=== PATIENT | male | born 1960 | race Caucasian/White ===

== ENCOUNTER 2021-11-14 09:49 | Emergency (ER) | payer OTHER ==
[2021-11-14 10:03] VITALS: RESP 18; TEMP 98.4
[2021-11-14] MEDS ORDERED: PROPARACAINE 0.5% OPHTH DROPS 15 ML BTL LEFT EYE STA (10:04)
[2021-11-14] MEDS ORDERED: FLUORESCEIN STRIPS 1 MG STRIP LEFT EYE ONE (10:04)
[2021-11-14] MEDS ORDERED: ERYTHROMYCIN 5 MG/GM OPHTH OINT 1 GM TUBE LEFT EYE STA (10:43)
[2021-11-14] MEDS ORDERED: DIPH,PERTUS(ACELL)TETVAC-LF 0.5 ML VIAL IM ONE (10:43)
--- NOTE | 2021-11-14 10:45 | ED ---
General Adult HPI - General Source: patient, RN notes reviewed Mode of arrival: ambulatory Limitations: no limitations <Phani Moreno - Last Filed: 11/14/21 10:47> <Hillary Diehl - Last Filed: 11/15/21 00:12> - General Chief complaint: Eye Problems Stated complaint: IHS-Lt Eye Injury Time Seen by Provider: 11/14/21 10:04 - History of Present Illness Initial comments: 61-year-old male presents to the emergency room for a chief complaint of left eye pain. Patient states he was changing the menus at [employer] and the lites metal carley fell and hit him on the eye. Patient states it feels like there is something in his eye. Denies pain around his eye. Denies any difficulty moving his eye. States that when his eye darts watering he has some blurry vision but otherwise his vision is fine.Patient has no other complaints at this time including shortness of breath, chest pain, abdominal pain, nausea or vomiting, headache, or visual changes. (Phani Moreno) - Related Data Home Medications Medication Instructions Recorded Confirmed Enalapril Maleate [Vasotec] 10 mg PO BID 01/30/16 05/31/16 Ibuprofen [Motrin] 2 - 3 tab PO Q6HR PRN 05/29/16 05/31/16 Previous Rx's Medication Instructions Recorded Hydrocodone/Acetaminophen [[place]lin 1 - 2 each PO Q4HR PRN #40 tab 05/31/16 5-325] Erythromycin Ophth Oint [Romycin 1 applic LEFT EYE QID 7 Days #3.5 11/14/21 Ophth Oint] gm Allergies Allergy/AdvReac Type Severity Reaction Status Date / Time No Known Allergies Allergy Verified 11/14/21 10:01 Review of Systems ROS Other: All systems not noted in ROS Statement are negative. <Phani Moreno - Last Filed: 11/14/21 10:47> ROS Other: All systems not noted in ROS Statement are negative. <Hillary Diehl - Last Filed: 11/15/21 00:12> ROS Statement: Those systems with pertinent positive or pertinent negative responses have been documented in the HPI. Past Medical History Past Medical History: Hypertension, Skin Disorder Additional Past Medical History / Comment(s): PSORIASIS. ALECIA ING HERNIA. History of Any Multi-Drug Resistant Organisms: None Reported Additional Past Surgical History / Comment(s): COLONOSCOPY. Past Anesthesia/Blood Transfusion Reactions: No Reported Reaction Past Psychological History: No Psychological Hx Reported Past Alcohol Use History: Occasional Past Drug Use History: None Reported - Past Family History Mother Family Medical History: No Reported History <Phani Moreno - Last Filed: 11/14/21 10:47> General Exam Limitations: no limitations General appearance: alert, in no apparent distress Head exam: Present: atraumatic, normocephalic Eye exam: Present: normal appearance, PERRL, EOMI. Absent: scleral icterus, conjunctival injection ENT exam: Present: normal exam, mucous membranes moist Neck exam: Present: normal inspection, full ROM. Absent: tenderness Respiratory exam: Present: normal lung sounds bilaterally. Absent: respiratory distress, wheezes Cardiovascular Exam: Present: regular rate, normal rhythm, normal heart sounds <Phani Moreno - Last Filed: 11/14/21 10:47> Course Vital Signs 11/14/21 11/14/21 10:01 11:04 Temperature 98.4 F 98.4 F Pulse Rate 82 80 Respiratory 18 18 Rate Blood Pressure 162/88 158/86 O2 Sat by Pulse 99 99 Oximetry Medical Decision Making <Phani Moreno - Last Filed: 11/14/21 10:47> <Hillary Diehl - Last Filed: 11/15/21 00:12> - Medical Decision Making Proparacaine was administered to the left eye and fluorescein stain was applied. Wood's lamp was utilized to visualize the cornea. Patient does have abrasion noted at 12:00. This is small in nature. Patient was started on erythromycin and given tetanus next seen up-to-date. Patient will be discharged home to follow-up with administrative support technician. (Phani Moreno) I was available for consultation in the emergency department. The history and physical exam were done by the midlevel provider. I was consulted for this patients care. I reviewed the case with the midlevel provider and based on their presentation of the patient, I agree with the assessment, medical decision making and plan of care as documented. Chart was dictated using [employer] dictation software. Attempts were made to correct any dictation errors however some typographical errors may persist. Patient was seen during a national state of emergency due to the Covid-19 pandemic. (Hillary Diehl) Disposition Is patient prescribed a controlled substance at d/c from ED?: No Time of Disposition: 10:43 <Phani Moreno - Last Filed: 11/14/21 10:47> <Hillary Diehl - Last Filed: 11/15/21 00:12> Clinical Impression: Corneal abrasion, left Disposition: HOME SELF-CARE Condition: Good Instructions (If sedation given, give patient instructions): Corneal Abrasion (ED) Additional Instructions: Please use antibiotic ointment four times daily for 7 days. Follow-up with your doctor. Return to the emergency room for any worsening symptoms. Prescriptions: Erythromycin Ophth Oint [Romycin Ophth Oint] 1 applic LEFT EYE QID 7 Days #3.5 gm Referrals: Jam Kenney MD [Primary Care Provider] - 1-2 days Adarsh Duenas MD [STAFF PHYSICIAN] - 1-2 days
[2021-11-14 11:07] VITALS: BP 158/86; PULSE 80
== END 2021-11-14 11:04 | disposition home or self-care (01) ==
LOC: EC 09:49
DX: S05.02XA Injury of conjunctiva and corneal abrasion without foreign body, left eye, initial encounter (principal); I10 Essential (primary) hypertension; Z23 Encounter for immunization; Z72.89 Other problems related to lifestyle; L40.9 Psoriasis, unspecified; W22.8XXA Striking against or struck by other objects, initial encounter; Y93.89 Activity, other specified; Y92.511 Restaurant or cafe as the place of occurrence of the external cause
CPT/HCPCS: 90471; 90715; 99283